=== PATIENT | female | born 2000 | race African-American/Black ===

== ENCOUNTER 2022-12-14 14:55 | Emergency (ER) | payer MEDICAID ==
[~2022-12-14] VITALS: Ht 162.6 cm; Wt 81.0 kg
[2022-12-14 15:08] VITALS: BP 134/83
== END 2022-12-14 19:00 | disposition left against medical advice (07) ==
LOC: ER 15:02
DX: Z53.21 Procedure and treatment not carried out due to patient leaving prior to being seen by health care provider (principal)
CPT/HCPCS: 80305; 81003